=== PATIENT | male | born 1990 | race African-American/Black ===

== ENCOUNTER 2023-11-01 14:39 | Emergency (ER) | payer MEDICAID ==
[~2023-11-01] VITALS: Ht 193 cm; Wt 114.0 kg
[2023-11-01 14:50] VITALS: BP 150/76; PULSE 140; RESP 22; TEMP 97.8; O2SAT 97
[2023-11-01 16:12] LABS: CLARITY URINE CLEAR (CLEAR); COLOR URINE YELLOW (YELLOW); GLUCOSE URINE NEGATIVE (NEGATIVE); KETONES URINE NEGATIVE (NEGATIVE); LEUKOCYTE ESTERASE URINE NEGATIVE (NEGATIVE); NITRITE URINE NEGATIVE (NEGATIVE); OCCULT BLOOD URINE NEGATIVE (NEGATIVE); PROTEIN URINE 2+ (NEGATIVE); SPECIFIC GRAVITY URINE 1.017 (1.005-1.030)
[2023-11-01 16:22] LABS: *AMPHETAMINES SCREEN URINE PRESUMPTIVE POSITIVE (NEGATIVE); *BARBITURATES SCREEN URINE NEGATIVE (NEGATIVE); *BENZODIAZEPINES SCREEN URINE PRESUMPTIVE POSITIVE (NEGATIVE); *COCAINE SCREEN URINE NEGATIVE (NEGATIVE); CANNABINOID URINE SCREEN PRESUMPTIVE POSITIVE (NEGATIVE); ECSTASY MDMA SCREEN URINE CONF.TEST INDICATED (NEGATIVE); METHADONE URINE SCREEN Neg (NEGATIVE); OPIATES URINE SCREEN NEGATIVE (NEGATIVE); PHENCYCLIDINE URINE SCREEN PRESUMTIVE POSITIVE (NEGATIVE)
[2023-11-01 16:36] LABS: BACTERIA URINE TRACE; RBC URINE NONE SEEN /hpf (0-2); SQUAMOUS EPITHELIAL CELL URINE RARE /lpf (RARE/1+); WBC URINE 0-2 /hpf (0-2)
== END 2023-11-01 16:45 | disposition left against medical advice (07) ==
LOC: ER 14:39
DX: R41.82 Altered mental status, unspecified (principal); Z98.890 Other specified postprocedural states
CPT/HCPCS: 80305; 81003; 99283

== ENCOUNTER 2024-08-20 13:25 | Emergency (ER) | payer OTHER, MEDICAID ==
[~2024-08-20] VITALS: Ht 180.3 cm; Wt 100.0 kg
[2024-08-20 13:29] VITALS: BP 110/83; PULSE 112; RESP 18; TEMP 98.3; O2SAT 100
== END 2024-08-20 13:58 ==
LOC: ER 13:34
DX: Z02.89 Encounter for other administrative examinations (principal)
CPT/HCPCS: 99283; Z7610

== ENCOUNTER 2024-08-22 21:47 | Emergency (ER) | payer MEDICAID, OTHER ==
[~2024-08-22] VITALS: Ht 182.9 cm; Wt 118.0 kg
[2024-08-22 21:49] VITALS: BP 122/76; PULSE 108; RESP 20; O2SAT 99
[2024-08-23 01:50] VITALS: TEMP 98.6
[2024-08-23] MEDS: ACETAMINOPHEN 325MG TABLET PO ONE (01:50)
[2024-08-23] MEDS ORDERED: ACET-2708 MT (02:11)
[2024-08-23] MEDS ORDERED: BO1 TP (02:12)
[2024-08-23] MEDS ORDERED: IBUP-2028 MT (04:23)
== END 2024-08-23 02:32 | disposition home or self-care (01) ==
LOC: ER 21:47
DX: M79.671 Pain in right foot (principal); M79.672 Pain in left foot; I10 Essential (primary) hypertension; Z59.00 Homelessness unspecified
CPT/HCPCS: 99283; 73630; Z7610

== ENCOUNTER 2024-08-23 04:13 | Emergency (ER) | payer MEDICAID ==
[~2024-08-23] VITALS: Ht 180.3 cm; Wt 121.0 kg
[~2024-08-23 04:13] MED LIST: ACET-2708 MT; BO1 TP
[2024-08-23 04:18] VITALS: O2SAT 98
[2024-08-23 04:20] VITALS: BP 157/94; PULSE 111; RESP 20; TEMP 97.8; O2SAT 96
[2024-08-23] MEDS ORDERED: IBUP-2028 MT (04:23)
[2024-08-23] MEDS: ACETAMINOPHEN 325MG TABLET PO ONE (04:33)
== END 2024-08-23 04:34 | disposition home or self-care (01) ==
LOC: ER 04:13
DX: R51.9 Headache, unspecified (principal); I10 Essential (primary) hypertension
CPT/HCPCS: 99282

== ENCOUNTER 2024-08-23 06:31 | Emergency (ER) | payer MEDICAID ==
[~2024-08-23] VITALS: Ht 180.3 cm; Wt 121.0 kg
[~2024-08-23 06:31] MED LIST changes: +IBUP-2028 MT
[2024-08-23 06:40] VITALS: O2SAT 98
[2024-08-23 07:39] LABS: BASOPHILS % 0.5 % (0.0-2.0); EOSINOPHILS % 3.7 % (0.0-5.0); HEMATOCRIT. 47.4 % (42.0-52.0); HEMOGLOBIN. 15.3 g/dL (14.0-18.0); LYMPHOCYTES % 23.3 % (20.0-50.0); MEAN CORPUSCULAR HEMOGLOBIN 27.6 pg (28.0-32.0); MEAN CORPUSCULAR HGB CONC 32.4 g/dL (31.0-37.0); MEAN CORPUSCULAR VOLUME 85.3 fL (80.0-94.0); MEAN PLATELET VOLUME 7.6 fl (7.4-10.4); NEUTROPHILS % 62.5 % (40.0-76.0); PLATELET 336 x1000/uL (130-400); RED BLOOD CELL COUNT 5.55 mill/uL (4.7-6.1); RED CELL DISTRIBUTION WIDTH 14.9 % (11.6-14.6); WHITE BLOOD COUNT 10.4 x1000/uL (4.5-11.0)
[2024-08-23 07:46] LABS: CHLORIDE 107 mEq/L (98-107); POTASSIUM 3.9 mEq/L (3.5-5.1); SODIUM 139 mEq/L (136-145)
[2024-08-23 07:47] LABS: CARBON DIOXIDE 22 mEq/L (21-32)
[2024-08-23 07:48] LABS: CALCIUM 9.3 mg/dL (8.7-10.4)
[2024-08-23 07:52] LABS: CREATININE 1.2 mg/dL (0.6-1.3); GLUCOSE 108 mg/dL (70-105); UREA NITROGEN BLOOD 12 mg/dL (9-23)
[2024-08-23] MEDS: OLANZAPINE 5MG TABLET PO SCH (13:19)
[2024-08-23] MEDS: LORAZEPAM 2MG/ML INJ IM ONE (23:30)
[2024-08-23] MEDS: HALOPERIDOL LACTATE 5MG/ML VIAL IM ONE (23:30)
[2024-08-24] MEDS: DIPHENHYDRAMINE 50MG/ML VIAL IM PRN (00:01)
[2024-08-25 03:17] LABS: CLARITY URINE CLEAR (CLEAR); COLOR URINE YELLOW (YELLOW); GLUCOSE URINE NEGATIVE (NEGATIVE); KETONES URINE NEGATIVE (NEGATIVE); LEUKOCYTE ESTERASE URINE NEGATIVE (NEGATIVE); NITRITE URINE NEGATIVE (NEGATIVE); OCCULT BLOOD URINE NEGATIVE (NEGATIVE); PROTEIN URINE NEGATIVE (NEGATIVE); SPECIFIC GRAVITY URINE 1.013 (1.005-1.030)
[2024-08-25 03:23] LABS: *AMPHETAMINES SCREEN URINE PRESUMPTIVE POSITIVE (NEGATIVE)
[2024-08-25 03:24] LABS: *BARBITURATES SCREEN URINE NEGATIVE (NEGATIVE); *BENZODIAZEPINES SCREEN URINE NEGATIVE (NEGATIVE); *COCAINE SCREEN URINE NEGATIVE (NEGATIVE); CANNABINOID URINE SCREEN PRESUMPTIVE POSITIVE (NEGATIVE); ECSTASY MDMA SCREEN URINE NEGATIVE (NEGATIVE); METHADONE URINE SCREEN NEGATIVE (NEGATIVE); OPIATES URINE SCREEN NEGATIVE (NEGATIVE); PHENCYCLIDINE URINE SCREEN PRESUMTIVE POSITIVE (NEGATIVE)
[2024-08-27 05:00] VITALS: BP 131/119; PULSE 76; RESP 18; TEMP 36.61404; O2SAT 100
== END 2024-08-27 09:10 | disposition home or self-care (01) ==
LOC: ER 06:31
DX: R26.2 Difficulty in walking, not elsewhere classified (principal); I10 Essential (primary) hypertension; E11.621 Type 2 diabetes mellitus with foot ulcer; Z20.822 Contact with and (suspected) exposure to COVID-19
CPT/HCPCS: 80305; 80048; 81003; 80307; 80329; 80320; 85025; 36415; 96372 ×2; 99285; 87426; J1200; J1630; J2060; G0480

== ENCOUNTER 2024-08-27 09:42 | Emergency (ER) | payer MEDICAID ==
[~2024-08-27] VITALS: Ht 193 cm; Wt 113.0 kg
[2024-08-27 09:45] VITALS: BP 136/95; O2SAT 98
[2024-08-27 09:54] VITALS: PULSE 82; RESP 18; O2SAT 100
[2024-08-27 12:23] VITALS: TEMP 98.6
[2024-08-27] MEDS: ACETAMINOPHEN 325MG TABLET PO ONE (12:23)
== END 2024-08-27 13:01 | disposition home or self-care (01) ==
LOC: ER 09:48
DX: M79.671 Pain in right foot (principal); M79.672 Pain in left foot; E11.9 Type 2 diabetes mellitus without complications; I10 Essential (primary) hypertension; Z59.00 Homelessness unspecified; F12.90 Cannabis use, unspecified, uncomplicated; F15.90 Other stimulant use, unspecified, uncomplicated
CPT/HCPCS: 99282

== ENCOUNTER 2025-07-19 10:06 | Emergency (ER) | payer MEDICAID, OTHER ==
[~2025-07-19] VITALS: Ht 188 cm; Wt 113.0 kg
[2025-07-19 10:08] VITALS: BP 115/75; PULSE 107; RESP 18; TEMP 98.4; O2SAT 100
== END 2025-07-19 11:06 | disposition home or self-care (01) ==
LOC: ER 10:06
DX: S13.4XXA Sprain of ligaments of cervical spine, initial encounter (principal); M54.50 Low back pain, unspecified; Z02.89 Encounter for other administrative examinations; F15.90 Other stimulant use, unspecified, uncomplicated; F12.90 Cannabis use, unspecified, uncomplicated; I10 Essential (primary) hypertension; V43.52XA Car driver injured in collision with other type car in traffic accident, initial encounter; Y93.89 Activity, other specified; Y92.410 Unspecified street and highway as the place of occurrence of the external cause; Y99.8 Other external cause status
CPT/HCPCS: 99283

== ENCOUNTER 2025-07-25 10:43 | Emergency (ER) | payer MEDICAID, OTHER ==
[~2025-07-25] VITALS: Ht 188 cm; Wt 114.0 kg
[2025-07-25 10:49] VITALS: BP 128/72; PULSE 108; RESP 18; TEMP 98.2; O2SAT 100
[2025-07-25 11:17] VITALS: TEMP 36.8; O2SAT 100
[2025-07-25 12:32] LABS: BASOPHILS % 0.3 % (0.0-2.0); EOSINOPHILS % 5.2 % (0.0-5.0); HEMATOCRIT. 41.8 % (42.0-52.0); HEMOGLOBIN. 13.6 g/dL (14.0-18.0); LYMPHOCYTES % 17.1 % (20.0-50.0); MEAN PLATELET VOLUME 7.5 fl (7.4-10.4); MONOCYTES % 6.8 % (2.0-8.0); NEUTROPHILS % 70.6 % (40.0-76.0); PLATELET 387 x1000/uL (130-400); RED BLOOD CELL COUNT 4.99 mill/uL (4.7-6.1); RED CELL DISTRIBUTION WIDTH 16.0 % (11.6-14.6)
[2025-07-25 12:55] LABS: CREATININE 1.1 mg/dL (0.6-1.3); UREA NITROGEN BLOOD 11 mg/dL (9-23)
[2025-07-25 12:56] LABS: ETHANOL BLOOD < 10 mg/dL (<10)
[2025-07-25 13:05] LABS: *AMPHETAMINES SCREEN URINE PRESUMPTIVE POSITIVE (NEGATIVE); *BARBITURATES SCREEN URINE NEGATIVE (NEGATIVE); *BENZODIAZEPINES SCREEN URINE NEGATIVE (NEGATIVE); *COCAINE SCREEN URINE NEGATIVE (NEGATIVE); CANNABINOID URINE SCREEN PRESUMPTIVE POSITIVE (NEGATIVE); ECSTASY MDMA SCREEN URINE NEGATIVE (NEGATIVE); METHADONE URINE SCREEN NEGATIVE (NEGATIVE); OPIATES URINE SCREEN NEGATIVE (NEGATIVE); PHENCYCLIDINE URINE SCREEN PRESUMTIVE POSITIVE (NEGATIVE)
[2025-07-25] MEDS ORDERED: IBUP-2028 PO (13:34)
== END 2025-07-25 14:06 | disposition home or self-care (01) ==
LOC: ER 10:43
DX: F29 Unspecified psychosis not due to a substance or known physiological condition (principal); M25.571 Pain in right ankle and joints of right foot; M25.572 Pain in left ankle and joints of left foot; I10 Essential (primary) hypertension; Z79.899 Other long term (current) drug therapy; Z20.822 Contact with and (suspected) exposure to COVID-19
CPT/HCPCS: 36415; 73600; 73610; 80048; 80305; 80320; 85025; 87426; 93005; 99285; G0480

== ENCOUNTER 2025-07-27 13:42 | Emergency (ER) | payer MEDICAID ==
[~2025-07-27] VITALS: Ht 182.9 cm; Wt 122.0 kg
[~2025-07-27 13:42] MED LIST changes: +IBUP-2028 PO
[2025-07-27 13:44] VITALS: O2SAT 100
[2025-07-27 15:13] LABS: *AMPHETAMINES SCREEN URINE PRESUMPTIVE POSITIVE (NEGATIVE)
[2025-07-27 15:14] LABS: *BARBITURATES SCREEN URINE NEGATIVE (NEGATIVE); *BENZODIAZEPINES SCREEN URINE NEGATIVE (NEGATIVE); *COCAINE SCREEN URINE NEGATIVE (NEGATIVE); CANNABINOID URINE SCREEN PRESUMPTIVE POSITIVE (NEGATIVE); ECSTASY MDMA SCREEN URINE NEGATIVE (NEGATIVE); METHADONE URINE SCREEN NEGATIVE (NEGATIVE); OPIATES URINE SCREEN NEGATIVE (NEGATIVE); PHENCYCLIDINE URINE SCREEN PRESUMTIVE POSITIVE (NEGATIVE)
[2025-07-27 23:49] LABS: BASOPHILS % 1.8 % (0.0-2.0); EOSINOPHILS % 5.6 % (0.0-5.0); HEMATOCRIT. 39.3 % (42.0-52.0); HEMOGLOBIN. 12.8 g/dL (14.0-18.0); LYMPHOCYTES % 33.5 % (20.0-50.0); MEAN PLATELET VOLUME 7.3 fl (7.4-10.4); MONOCYTES % 9.0 % (2.0-8.0); NEUTROPHILS % 50.1 % (40.0-76.0); PLATELET 369 x1000/uL (130-400); RED BLOOD CELL COUNT 4.69 mill/uL (4.7-6.1); RED CELL DISTRIBUTION WIDTH 16.0 % (11.6-14.6)
[2025-07-28 00:02] LABS: CREATININE 1.0 mg/dL (0.6-1.3); UREA NITROGEN BLOOD 11 mg/dL (9-23)
[2025-07-28 00:03] LABS: ETHANOL BLOOD < 10 mg/dL (<10); PROTEIN TOTAL 6.4 g/dL (6.0-8.3)
[2025-07-28 00:04] LABS: ASPARTATE AMINOTRANSFERASE 17 IU/L (<34); BILIRUBIN DIRECT < 0.1 mg/dL (<=3.0)
[2025-07-28 00:05] LABS: BILIRUBIN TOTAL 0.4 mg/dL (0.1-1.0)
[2025-07-28] MEDS: OLANZAPINE 5MG TABLET ODT PO SCH (09:45)
[2025-07-28 12:17] LABS: CLARITY URINE CLEAR (CLEAR); COLOR URINE YELLOW (YELLOW); GLUCOSE URINE NEGATIVE (NEGATIVE); KETONES URINE NEGATIVE (NEGATIVE); LEUKOCYTE ESTERASE URINE NEGATIVE (NEGATIVE); NITRITE URINE NEGATIVE (NEGATIVE); OCCULT BLOOD URINE NEGATIVE (NEGATIVE); PH URINE 7.0 (4.5-8.0); PROTEIN URINE NEGATIVE (NEGATIVE); SPECIFIC GRAVITY URINE 1.014 (1.005-1.030); UROBILINOGEN URINE 1.0 E.U./dL (0.2-1.0)
[2025-07-29 08:45] VITALS: BP 142/72; PULSE 70; RESP 17; TEMP 37; O2SAT 100
== END 2025-07-29 09:03 ==
LOC: ER 13:42
DX: R45.851 Suicidal ideations (principal); F12.90 Cannabis use, unspecified, uncomplicated; F15.90 Other stimulant use, unspecified, uncomplicated; Z79.899 Other long term (current) drug therapy; Z59.00 Homelessness unspecified; F20.9 Schizophrenia, unspecified; F32.A Depression, unspecified; I10 Essential (primary) hypertension; Z79.1 Long term (current) use of non-steroidal anti-inflammatories (NSAID); Z20.822 Contact with and (suspected) exposure to COVID-19
CPT/HCPCS: 36415; 80048; 80076; 80305; 80307; 80320; 80329; 81003; 85025; 87426; 93005; 99285; G0480